=== PATIENT | male | born 1970 ===

== ENCOUNTER 2019-05-08 11:28 | Emergency (ER) | payer OTHER ==
[~2019-05-08] VITALS: Ht 160 cm; Wt 68.0 kg
== END 2019-05-08 13:59 | disposition home or self-care (01) ==
LOC: ER 11:28
DX: S61.212A Laceration without foreign body of right middle finger without damage to nail, initial encounter (principal); E11.9 Type 2 diabetes mellitus without complications; W26.8XXA Contact with other sharp object(s), not elsewhere classified, initial encounter; Y99.0 Civilian activity done for income or pay
CPT/HCPCS: 12001; 99282-25